=== PATIENT | female | born 1960 | race African-American/Black ===

== ENCOUNTER 2018-11-19 11:08 | Emergency (ER) | payer BC ==
[~2018-11-19] VITALS: Ht 160 cm; Wt 66.8 kg
[2018-11-19 11:23] VITALS: Ht 160 cm; Wt 66.8 kg
[2018-11-19 14:29] VITALS: BP 118/67
== END 2018-11-19 14:29 | disposition home or self-care (01) ==
LOC: ED 11:08
DX: S02.5XXA Fracture of tooth (traumatic), initial encounter for closed fracture (principal); S16.1XXA Strain of muscle, fascia and tendon at neck level, initial encounter; S46.912A Strain of unspecified muscle, fascia and tendon at shoulder and upper arm level, left arm, initial encounter; Z98.890 Other specified postprocedural states; Z90.12 Acquired absence of left breast and nipple; Z85.3 Personal history of malignant neoplasm of breast; W01.0XXA Fall on same level from slipping, tripping and stumbling without subsequent striking against object, initial encounter; Y93.89 Activity, other specified; Y92.89 Other specified places as the place of occurrence of the external cause; Y99.8 Other external cause status